=== PATIENT | female | born 1980 | race Caucasian/White ===

== ENCOUNTER 2017-10-27 12:01 | Inpatient (IN) ==
[2017-10-27] MEDS ORDERED: BUTORPHANOL 2 MG/ML VIAL IV PRN (12:20)
[2017-10-27] MEDS ORDERED: ONDANSETRON 4 MG/2 ML VIAL IV PRN (12:20)
[2017-10-27] MEDS: LACTATED RINGERS 1,000 ML IV SCH ×2 (12:35→19:38)
[2017-10-27 12:45] LABS: Basophils % 0.3 % (0.0-0.8); Eosinophils % 0.3 % (0.00-10.9); Hemoglobin 13.1 GM/DL (12.0-16.0); Immature Granulocytes % 0.6 %; Immature Granulocytes Absolute 0.06 #; Lymphocytes # 1.6 10*3/uL (1.4-4.0); Mean Corpuscular HGB Conc 33.6 GM/DL (32-36); Mean Corpuscular Hemoglobin 29 PG (27-34); Mean Corpuscular Volume 87.6 FL (87-102); Mean Platelet Volume 10.6 FL (9.6-12.0); Monocytes # 0.6 10*3/uL (0.11-0.8); Monocytes % 5.9 % (1.7-12.7); Neutrophils # 7.6 10*3/uL (1.4-7.4); Neutrophils % 76.9 % (38.7-73.9); Platelet Count 211 T/CUMM (130-400); Red Blood Count 4.45 MC/CUMM (3.8-5.5); Red Cell Distribution Width 14.4 % (9.3-17.3); White Blood Count 9.9 T/CUMM (4-12)
[2017-10-27 13:13] LABS: Albumin 2.7 G/DL (3.4-5.0); Bilirubin,Total 0.4 MG/DL (0.2-1.0); Calcium 8.2 MG/DL (8.5-10.1); Osmolality,Calculated 270.7 MOS/KG (273-304); Total Protein 5.9 G/DL (6.4-8.3)
[2017-10-27] MEDS: OXYTOCIN/LR 20 UNIT/1,000 ML BAG IV SCH (13:19)
[2017-10-28] MEDS: FAMOTIDINE 20 MG/2 ML VIAL IV SCH (05:11)
[2017-10-28] MEDS: OXYTOCIN/LR 20 UNIT/1,000 ML BAG IV SCH (07:34)
[2017-10-28] MEDS: LACTATED RINGERS 1,000 ML IV SCH (08:55)
[2017-10-28] MEDS ORDERED: MEPERIDINE 50 MG/1 ML VIAL IV ONE (10:20)
[2017-10-28] MEDS ORDERED: LIDOCAINE 1% 50 ML VIAL ONE (10:31)
[2017-10-28] MEDS ORDERED: LANOLIN 50% CREAM 0.3 OZ TUBE TOP PRN (12:36)
[2017-10-28] MEDS ORDERED: BENZOCAINE 20%/MENTHOL 0.5% SPRAY 56 GM CAN TOP PRN (12:36)
[2017-10-28] MEDS ORDERED: DIPH/TET/ACEL PERT BOOSTER VACCINE 0.5 ML VIAL IM ONE (12:36)
[2017-10-28] MEDS ORDERED: WITCH HAZEL PADS 100/JAR TOP PRN (12:36)
[2017-10-28] MEDS ORDERED: BISACODYL 10 MG SUPP RECTAL PRN (12:36)
[2017-10-28] MEDS ORDERED: HYDROCORTISONE 2.5% RECTAL CREAM 30 GM TUBE TOP PRN (12:36)
[2017-10-28] MEDS ORDERED: RHO(D) IMMUNE GLOBULIN 300 MCG SYRINGE IM ONE (12:36)
[2017-10-28] MEDS ORDERED: ACETAMINOPHEN 325 MG TABLET PO PRN (12:36)
[2017-10-28] MEDS: oxyCODONE/ACETAMINOPHEN 5-325 MG TABLET PO PRN ×2 (14:35→20:22)
[2017-10-28] MEDS: IBUPROFEN 800 MG TABLET PO PRN ×2 (14:35→20:22)
[2017-10-28] MEDS: DOCUSATE SODIUM 100 MG CAPSULE PO SCH (20:22)
[2017-10-29] MEDS: IBUPROFEN 800 MG TABLET PO PRN ×2 (03:27→11:43)
[2017-10-29 05:17] LABS: Basophils % 0.3 % (0.0-0.8); Eosinophils # 0.1 10*3/uL (0.0-0.87); Eosinophils % 0.9 % (0.00-10.9); Hematocrit 35.8 VOL% (35.7-47.0); Hemoglobin 11.7 GM/DL (12.0-16.0); Immature Granulocytes % 0.9 %; Lymphocytes # 2.2 10*3/uL (1.4-4.0); Lymphocytes % 19.2 % (21.3-54.2); Mean Corpuscular HGB Conc 32.7 GM/DL (32-36); Mean Corpuscular Hemoglobin 29 PG (27-34); Mean Corpuscular Volume 88.4 FL (87-102); Mean Platelet Volume 10.6 FL (9.6-12.0); Monocytes # 0.9 10*3/uL (0.11-0.8); Monocytes % 8.4 % (1.7-12.7); Neutrophils # 7.9 10*3/uL (1.4-7.4); Neutrophils % 70.3 % (38.7-73.9); Platelet Count 159 T/CUMM (130-400); Red Blood Count 4.05 MC/CUMM (3.8-5.5); Red Cell Distribution Width 14.6 % (9.3-17.3); White Blood Count 11.2 T/CUMM (4-12)
[2017-10-29] MEDS: oxyCODONE/ACETAMINOPHEN 5-325 MG TABLET PO PRN ×2 (06:51→21:22)
[2017-10-29] MEDS: MULTIVITAMIN (PRENATAL) TABLET PO SCH (08:25)
[2017-10-29] MEDS: DOCUSATE SODIUM 100 MG CAPSULE PO SCH ×2 (08:25→21:22)
[2017-10-30] MEDS: IBUPROFEN 800 MG TABLET PO PRN (05:54)
[2017-10-30] MEDS: oxyCODONE/ACETAMINOPHEN 5-325 MG TABLET PO PRN (05:54)
[2017-10-30 08:25] VITALS: BP 121/77
[2017-10-30] MEDS: MULTIVITAMIN (PRENATAL) TABLET PO SCH (09:41)
[2017-10-30] MEDS: DOCUSATE SODIUM 100 MG CAPSULE PO SCH (09:41)
== END 2017-10-30 11:55 | disposition home or self-care (01) | DRG 775 ==
LOC: N.LDOUT 12:01 → N.LD 12:55 → N.OB 10-28 13:37
PROVIDERS: ADMIT Obstetrics & Gynecology; ATTEND Obstetrics & Gynecology